=== PATIENT | male | born 1975 | race Caucasian/White ===

== ENCOUNTER 2018-07-28 07:43 | Day surgery (SDC) | payer OTHER ==
[2018-07-28] MEDS ORDERED: IODIXANOL LOCM 50 ML BTL (09:03)
[2018-07-28] MEDS ORDERED: HEPARIN 1000 UNITS/NS (A-LINE) 1,000 ML (09:03)
[2018-07-28] MEDS ORDERED: LIDOCAINE 2% (MDV) 20 ML INJ (09:03)
[2018-07-28] MEDS ORDERED: MIDAZOLAM 1 MG/ML 2 ML INJ (09:04)
[2018-07-28] MEDS ORDERED: FENTAnyl 50 MCG/ML VIAL (09:04)
== END 2018-07-28 10:05 | disposition home or self-care (01) ==
LOC: SDS 07:43
DX: T82.848A Pain due to vascular prosthetic devices, implants and grafts, initial encounter (principal); Y84.1 Kidney dialysis as the cause of abnormal reaction of the patient, or of later complication, without mention of misadventure at the time of the procedure; I12.0 Hypertensive chronic kidney disease with stage 5 chronic kidney disease or end stage renal disease; N18.6 End stage renal disease
CPT/HCPCS: 36902; 84132

== ENCOUNTER 2018-09-26 07:48 | Day surgery (SDC) | payer OTHER ==
[2018-09-26 08:50] LABS: ADD MAN DIFF? NO
[2018-09-26 08:53] LABS: BASOPHIL # 0.1 10^3/ul (0.0-0.1); BASOPHILS % 0.7 % (0.0-2.0); EOSINOPHILS # 0.1 10^3/ul (0.0-0.5); EOSINOPHILS % 1.1 % (0.0-7.0); HEMATOCRIT 42.1 % (42.0-52.0); LYMPHOCYTES % 27.9 % (15.0-51.0); MEAN CORPUSCULAR HEMOGLOBIN 31.3 pg (29.0-33.0); MEAN CORPUSCULAR HGB CONC 33.3 g/dl (32.0-37.0); MEAN PLATELET VOLUME 9.3 fl (7.4-10.4); MONOCYTE # 0.5 10^3/ul (0.3-0.9); NEUTROPHIL # 4.6 10^3/ul (1.6-7.5); NEUTROPHILS % 63.2 % (39.0-77.0); PLATELET COUNT 266 10^3/UL (140-415); RED BLOOD COUNT 4.48 10^6/ul (4.70-6.10); RED CELL DISTRIBUTION WIDTH 13.1 % (11.5-14.5)
[2018-09-26 08:53] LABS: WHITE BLOOD COUNT 7.3 10^3/ul (4.8-10.8)
[2018-09-26 09:12] LABS: ALANINE AMINOTRANSFERASE 26 IU/L (13-69); ALBUMIN 4.7 g/dl (3.3-4.9); ALBUMIN/GLOBULIN RATIO 1.51; ALKALINE PHOSPHATASE 43 IU/L (42-121); ANION GAP 20 (5-13); ASPARTATE AMINO TRANSFERASE 19 IU/L (15-46); BILIRUBIN,INDIRECT 0.4 mg/dl (0-1.1); BILIRUBIN,TOTAL 0.4 mg/dl (0.2-1.3); CALCIUM 9.8 mg/dl (8.4-10.2); CARBON DIOXIDE 25 mmol/L (21-31); CHLORIDE 94 mmol/L (97-110); Estimated GFR 4 mL/min (>60); GLUCOSE 95 mg/dl (70-220); SODIUM 139 mmol/L (135-144); TOTAL PROTEIN 7.8 g/dl (6.1-8.1)
[2018-09-26 09:13] LABS: INR 0.91; PROTIME 12.4 Sec (11.9-14.9)
[2018-09-26 09:14] LABS: PARTIAL THROMBOPLASTIN TIME 34.3 Sec (23.0-35.0)
[2018-09-26 09:18] LABS: BLOOD UREA NITROGEN 59 mg/dl (7-20)
[2018-09-26 09:19] LABS: POTASSIUM 4.8 mmol/L (3.5-5.1)
[2018-09-26] MEDS ORDERED: LIDOCAINE 1% (MPF) 30 ML INJ (10:47)
[2018-09-26] MEDS ORDERED: ROCURONIUM 50 MG INJ (11:05)
[2018-09-26] MEDS ORDERED: PROPOFOL 20 ML (11:05)
[2018-09-26] MEDS ORDERED: LIDOCAINE 1% (MDV) 20 ML INJ (11:06)
[2018-09-26] MEDS ORDERED: MIDAZOLAM 1 MG/ML 2 ML INJ (11:06)
[2018-09-26] MEDS ORDERED: CEFAZOLIN 1 GM INJ (11:22)
[2018-09-26] MEDS ORDERED: FENTAnyl 50 MCG/ML VIAL IV (12:30)
== END 2018-09-26 13:29 | disposition home or self-care (01) ==
LOC: SDS 07:48
DX: M71.22 Synovial cyst of popliteal space [Baker], left knee (principal); E11.22 Type 2 diabetes mellitus with diabetic chronic kidney disease; I12.0 Hypertensive chronic kidney disease with stage 5 chronic kidney disease or end stage renal disease; N18.6 End stage renal disease; Z99.2 Dependence on renal dialysis
CPT/HCPCS: 27345; 71045; 80053; 85025; 85610; 85730; 88307; 88342; 93005